=== PATIENT | female | born 1950 | race Native Hawaiian/Other Pacific Islander ===

== ENCOUNTER 2019-10-17 10:18 | Emergency (ER) | payer OTHER ==
[~2019-10-17] VITALS: Ht 157.5 cm; Wt 106.1 kg
[2019-10-17 10:26] VITALS: BP 151/117; TEMP 98.1
[2019-10-17] MEDS ORDERED: RANITIDINE HYD150 MG PO (10:37)
[2019-10-17] MEDS ORDERED: CARV6.25 PO (10:37)
[2019-10-17] MEDS ORDERED: LISI20TA11 PO (10:38)
[2019-10-17] MEDS ORDERED: INCRUSE EL62.5 MCG/I INH (10:38)
[2019-10-17] MEDS ORDERED: ALBU90AE13 INH (10:39)
[2019-10-17] MEDS ORDERED: GRALISE300 MG PO (10:39)
[2019-10-17] MEDS ORDERED: LOSA50TA PO (10:40)
[2019-10-17 11:23] LABS: PLATELET COUNT 120 K/uL (152-353)
[2019-10-17 11:35] LABS: POTASSIUM 4.2 mmol/L (3.6-5.2); SODIUM 141 mmol/L (136-145)
== END 2019-10-17 12:34 | disposition home or self-care (01) ==
LOC: ED 10:18
PROVIDERS: Emergency Medicine
DX: J44.1 Chronic obstructive pulmonary disease with (acute) exacerbation (principal); J40 Bronchitis, not specified as acute or chronic; R06.02 Shortness of breath
CPT/HCPCS: 80053; 83735; 83880; 84484; 85027; 87502; 87651; 94664; 96374; 99284; J2930